=== PATIENT | male | born 1960 | race Caucasian/White ===

== ENCOUNTER 2018-01-19 23:39 | Emergency (ER) | payer OTHER ==
[~2018-01-19] VITALS: Ht 188 cm; Wt 118.9 kg
[~2018-01-19 23:39] MED LIST: ALBU.5I INH; ALBU0.086 INH; ALBU17I INH; PRED20 PO; SYMB160A INH; VENTAER INH
[2018-01-19 23:45] VITALS: BP 154/84; PULSE 109; RESP 14; TEMP 97.8; O2SAT 96
[2018-01-20] MEDS ORDERED: SYMB160A INH (00:52)
[2018-01-20] MEDS ORDERED: LIDOCAINE HCL 1% PF 10 ML VIAL INFIL ONE (01:00)
[2018-01-20] MEDS ORDERED: TETANUS/DIPHTHERIA TOXOID ADULT 0.5 ML VIAL IM ONE (01:00)
--- NOTE | 2018-01-20 01:01 | PD ---
HPI Chief Complaint: Laceration/Skin Injury Time Seen by Provider: 00:46 Travel History International Travel<30 days: No Contact w/Intl Traveler<30days: No Traveled to known affect area: No History of Present Illness HPI 57-year-old male presents to the emergency department for laceration to the right index finger. Injury occurred just prior to arrival to the emergency department. Patient is right-handed. Patient states he was fishing and lost his balance [place] Patient notes some shell debris in the wound. He denies any digit numbness tingling or weakness and has intact flexion and extension. Patient does not know his tetanus status. Patient takes no blood thinning agents. Patient is not diabetic. No history of transplant or autoimmune disorder. Patient does have asthma and is on chronic steroid therapy. PFSH Past Medical History Narrative Medical Asthma, GERD, seizure; tobacco use, alcohol use; no surgery; nursing notes reviewed Asthma: Yes Cancer: No Diminished Hearing: No Gastrointestinal Disorders: Yes GERD: Yes Musculoskeletal: Yes Neurologic: Yes Psychiatric: No Respiratory: Yes Immunizations Current: No Seizures: Yes Tetanus Vaccination: > 5 Years Influenza Vaccination: No Past Surgical History Pacemaker: No Social History Alcohol Use: Yes (OCC) Tobacco Use: Yes (3 CIGARETTES DAY) Substance Use: No (LAST USED 2006 COCCAINE) Allergies-Medications (Allergen,Severity, Reaction): Coded Allergies: No Known Allergies (Verified Adverse Reaction, Unknown, 01/20/18) Reported Meds & Prescriptions Reported Meds & Active Scripts Active Proventil Ud 0.083% (2.5 Mg/3 Ml) (Albuterol Sulfate) 2.5 Mg/3 Ml Inha 2.5 Mg INH Q4 Deltasone 20 Mg Tab (Prednisone) 20 Mg Tab 20 Mg PO BID Ventolin Hfa (Albuterol Sulfate) 18 Gm Aero 2 Puff INH Q4 PRN * SHAKE WELL BEFORE USE * Reported Symbicort Inh (Budesonide/Formoterol Fumarate) 160-4.5 Mcg/Act Aero 2 Puff INH BID Proventil Conc Ud 0.5% (2.5 Mg/0.5 Ml) (Albuterol Sulfate) 2.5 Mg/0.5 Ml Inha 2.5 Mg INH Q6 Proventil Mdi (Albuterol Sulfate) 17 Gm Aero 2 Puff INH Q6HPRN Review of Systems Except as stated in HPI: all other systems reviewed are Neg Physical Exam Narrative GENERAL: Well-developed well-nourished male no acute distress no respiratory distress; GCS 15 SKIN: Warm and dry. HEAD: Normocephalic. EYES: No scleral icterus. No injection or drainage. NECK: Supple, trachea midline. No JVD or lymphadenopathy. CARDIOVASCULAR: Regular rate and rhythm without murmurs, gallops, or rubs. RESPIRATORY: Breath sounds equal bilaterally. No accessory muscle use. GASTROINTESTINAL: Abdomen soft, non-tender, nondistended. MUSCULOSKELETAL: No cyanosis, or edema. Attention right hand specifically right index finger neurovascular tendon intact capillary refill brisk and less than 2 seconds 2 cm laceration palmar aspect of the PIP. Few superficial linear lacerations subcentimeter on the right index finger volar/palmar aspect as well as the right middle finger and palm. Digits are neurovascular tendon intact intact flexion extension capillary refill less than 2 seconds abduction abduction intact. Sensation intact. BACK: Nontender without obvious deformity. No CVA tenderness. Data Data Last Documented VS Vital Signs Date Time Temp Pulse Resp B/P (MAP) Pulse Ox O2 Delivery O2 Flow Rate FiO2 01/19/18 23:45 97.8 109 14 154/84 (107) 96 Orders Orders Finger ([id number]) (01/20/18 ) Tetanus/Diphtheria Tox Adult (Tetanus/Di (01/20/18 01:00) Wound Care (01/20/18 00:46) Lidocaine Pf 1% Inj (Xylocaine-Mpf 1% In (01/20/18 01:00) Ciprofloxacin (Cipro) (01/20/18 01:45) Wound Care (01/20/18 01:33) MDM Medical Decision Making Medical Screen Exam Complete: Yes Emergency Medical Condition: Yes Medical Record Reviewed: Yes Interpretation(s) Right index finger x-ray: Positive foreign body no bony abnormality Vital Signs Date Time Temp Pulse Resp B/P (MAP) Pulse Ox O2 Delivery O2 Flow Rate FiO2 01/19/18 23:45 97.8 109 14 154/84 (107) 96 Differential Diagnosis Laceration, contusion, retained foreign body, neurovascular tendon injury, bony injury Narrative Course Wound site cleansed tetanus status updated laceration repaired first dose of antibiotic administered Procedures Procedure Narrative LACERATION LOCATION: Right index finger LENGTH: 2 cm NUMBER OF STITCHES/DA: 3 REPAIR: The area of the laceration was prepped with Betadine and sterilely draped. The laceration was infiltrated with 1% lidocaine plain. The wound was copiously irrigated and explored without evidence of foreign body, tendon injury or neurovascular injury. The wound was closed using 5-0 nylon. This was a single layer repair. A sterile dressing was applied. The patient was advised to keep the dressing clean and dry. Patient tolerated the procedure well. Tetanus status updated. Diagnosis Primary Impression: Finger laceration Qualified Codes: S61.220A - Laceration with foreign body of right index finger without damage to nail, initial encounter Referrals: Hand Surgeon as needed Primary Care Physician 2 days Patient Instructions: General Instructions Additional Instructions: Keep site clean and dry Wound check at 2 days Suture removal at 7-10 days Complete course of antibiotic as prescribed Return to the emergency department for any concerns or change in condition Follow wound care instruction Med/Other Pt SpecificInfo: Prescription(s) given Scripts Ciprofloxacin (Cipro) 500 Mg Tab 500 MG PO BID for Infection for 7 Days, #14 TAB 0 Refills Prov: Sybil Vasques MD 01/20/18 Disposition: 01 DISCHARGE HOME Condition: Stable Sybil Vasques MD Jan 20, 2018 01:01
--- NOTE | 2018-01-20 01:13 | RADRPT ---
EXAM DATE/TIME: 01/20/2018 00:48 [facility] COMPARISON: No previous studies available for comparison. INDICATIONS : Right hand, second digit pain after fall onto shells. Possible foreign body. MEDICAL HISTORY : None. SURGICAL HISTORY : None. ENCOUNTER: Initial ACUITY: 1 day PAIN SCORE: 3/10 LOCATION: Right hand, base of second metacarpal. FINDINGS: Examination of the second digit of the right hand demonstrates no evidence of fracture or dislocation . On the lateral view, a miniscule linear radiodense sarah is seen along the surface of the plantar a spect of the finger at the level of the PIP joint. This is not seen on the other 2 views. CONCLUSION: No acute bony injury Babak Gonzalez MD on January 20, 2018 at 1:10 Board Certified Radiologist. This report was verified electronically.
[2018-01-20] MEDS ORDERED: CIPR-9 PO (01:40)
[2018-01-20] MEDS ORDERED: CIPROFLOXACIN 500 MG TAB PO ONE (01:45)
[2018-01-20 01:50] VITALS: BP 138/86; PULSE 83; RESP 16; O2SAT 98
== END 2018-01-20 02:50 | disposition home or self-care (01) ==
LOC: PHED 23:39
DX: S61.210A Laceration without foreign body of right index finger without damage to nail, initial encounter (principal); J45.909 Unspecified asthma, uncomplicated; K21.9 Gastro-esophageal reflux disease without esophagitis; F17.210 Nicotine dependence, cigarettes, uncomplicated; W45.8XXA Other foreign body or object entering through skin, initial encounter; Y93.89 Activity, other specified; Z86.69 Personal history of other diseases of the nervous system and sense organs; Z23 Encounter for immunization; Z79.51 Long term (current) use of inhaled steroids
CPT/HCPCS: 12001; 73140; 90471; 90714